=== PATIENT | female | born 1940 | race Caucasian/White ===

== ENCOUNTER → 2019-08-10 | Emergency (ER) | payer OTHER ==
[~2019-08-10] VITALS: Ht 160 cm; Wt 72.6 kg
[~2019-08-10] MED LIST: AVALIDE 300-251 TAB PO; AZOR 5-20 MG T1 EACH; CIPRO500 MG PO; COZAAR50 MG; DOXAZOSIN MESYLA2 MG; ENALAPRIL MALEA10 MG; ENALAPRIL MALEA10 MG NGT; EVISTA60 MG PO; FOLIC ACID0.4 MG; GLUCOPHAGE XR500 MG PO; LEVAQUIN750 MG PO; METFORMIN HCL500 M1; METFORMIN HCL500 MG PO; MONTELUKAST SODI4 M1; NASONEX17 GM NS; NORVASC5 MG PO; PEPCID40 MG PO; PROTONIX40 MG; SYNTHROID75 MCG PO; TOPROL XL50 MG; VITAMIN B122500 MC1; VITAMIN D3400 UNIT; XYZAL5 MG PO; ZOFRAN4 MG PO; [UNRECOGNIZED DRUG - OTHER]
== END | disposition home or self-care (01) ==
LOC: ER 14:09
DX: K52.89 Other specified noninfective gastroenteritis and colitis (principal)

== ENCOUNTER → 2022-10-27 | Emergency (ER) | payer OTHER ==
[~2022-10-27] VITALS: Ht 160 cm; Wt 70.3 kg
== END | disposition left against medical advice (07) ==
LOC: ER 00:10
DX: Z53.21 Procedure and treatment not carried out due to patient leaving prior to being seen by health care provider (principal)